=== PATIENT | male | born 1945 | race Caucasian/White ===

== ENCOUNTER 2020-10-28 11:47 | Emergency (ER) | payer MEDICARE, OTHER ==
[~2020-10-28] VITALS: Ht 165.1 cm; Wt 58.1 kg
[~2020-10-28 11:47] MED LIST: METF-440 PO
--- NOTE | 2020-10-28 11:50 | NUR ---
RECIEVED A CALL FROM [facility] FROM RYAN YANG. ONCE PATIENT IS MEDICALLY CLEARED PT CAN BE SENT BACK TO [facility]. NUMBER FOR FACILITY [phone]
--- NOTE | 2020-10-28 11:58 | NUR ---
DR. MIKE AT BEDSIDE FOR EVAL.
--- NOTE | 2020-10-28 12:29 | NUR ---
PT WAS C/O WEAKNESS AT THE OUTPATIENT FACILITY. BUT HE STS HE FEELS BETTER NOW. DENIES DIZZINESS OR ANY COMPLAINTS AT THIS TIME.
[2020-10-28] MEDS ORDERED: MECLIZINE HCL 12.5 MG TABLET PO ONE (12:30)
[2020-10-28] MEDS ORDERED: IV NS 0.9% 1,000 ML BAG IV ONE (12:30)
--- NOTE | 2020-10-28 12:30 | NUR ---
phleb at bedside for blood draw
[2020-10-28 12:35] LABS: BASOPHILS % (AUTO) 0.7 % (0.0-2.0); EOSINOPHILS % (AUTO) 2.8 % (0.0-6.0); HEMATOCRIT 39 % (39-51); HEMOGLOBIN 12.7 g/dL (13.5-17.5); LYMPHOCYTES # (AUTO) 2.6 /CMM (0.8-4.8); LYMPHOCYTES % (AUTO) 48.2 % (20.0-44.0); MEAN CORPUSCULAR HGB CONC 33 g/dl (31.0-36.0); MEAN CORPUSCULAR VOLUME 92 fL (80-96); MONOCYTES # (AUTO) 0.5 /CMM (0.1-1.30); MONOCYTES % (AUTO) 10.2 % (2.0-12.0); NEUTROPHILS # (AUTO) 2.1 /CMM (1.8-8.9); NEUTROPHILS % (AUTO) 38.1 % (43.0-81.0); PLATELET COUNT (AUTO) 297 /CMM (150-450); RED BLOOD CELL COUNT(AUTO) 4.24 MIL/uL (4.5-6.0); WHITE BLOOD COUNT (AUTO) 5.4 K/uL (4.3-11.0)
--- NOTE | 2020-10-28 12:43 | NUR ---
IV LINE ESTABLISHED, IV FLUIDS STARTED.
[2020-10-28 12:46] LABS: CREATININE 0.8 mg/dL (0.6-1.3); POTASSIUM 4.4 mmol/L (3.5-5.1)
[2020-10-28 12:49] LABS: ACETAMINOPHEN 0 ug/ml (10-30); ALANINE AMINOTRANSFERASE 20 U/L (12-78); ALBUMIN 3.3 g/dL (3.4-5.0); ALCOHOL, BLOOD < 3 mg/dL (0-0); ALKALINE PHOSPHATASE 75 U/L (46-116); ASPARTATE AMINOTRANSFERASE 22 U/L (15-37); BILIRUBIN,DIRECT 0.1 mg/dL (0.0-0.2); BILIRUBIN,TOTAL 0.2 mg/dL (0.2-1.0)
[2020-10-28 13:50] VITALS: BP 150/91
--- NOTE | 2020-10-28 13:53 | NUR ---
[id number] RESERVATION #[id number], ETA TO FOLLOW
--- NOTE | 2020-10-28 13:58 | NUR ---
URINE SENT TO LAB
[2020-10-28 14:11] LABS: BILIRUBIN,URINE Negative (NEGATIVE); COLOR,URINE YELLOW (YELLOW); LEUKOCYTE ESTERASE ,URINE Negative (NEGATIVE); NITRITE, URINE Negative (NEGATIVE); PROTEIN,URINE Negative (NEGATIVE); UGLUCOSE 100 MG/DL mg/dL (NEGATIVE); UROBILINOGEN,URINE 0.2 EU/dL (0.2)
--- NOTE | 2020-10-28 15:35 | NUR ---
CALLED [facility] FOR TRANSPORT TO [facility]. ETA 30-45 MINUTES.
--- NOTE | 2020-10-28 16:32 | NUR ---
REPORT GIVEN TO PLATFORM LOADER, LAB RESULTS AND CT PRINTED AND GIVEN TO PLATFORM LOADER. DISCHARGE INSTRUCTIONS GIVEN TO PATIENT. PATIENT VERBALIZED UNDERSTANDING. IN NO DISTRESS NOTED. IV removed. Catheter intact and site benign. Pressure and 4x4 applied to site. No bleeding noted. PATIENT DISCHARGED TO [facility].
== END 2020-10-28 16:34 ==
LOC: ER 11:58
DX: Z02.89 Encounter for other administrative examinations (principal); R42 Dizziness and giddiness; E11.9 Type 2 diabetes mellitus without complications; Z79.84 Long term (current) use of oral hypoglycemic drugs
CPT/HCPCS: 36415; 70450; 80048; 80076; 80299; 80307; 80320; 81003; 82962; 85025; 93005; 96360; 99285; J7030; G0480